=== PATIENT | female | born 1995 | race Two or more races ===

== ENCOUNTER 2024-10-05 12:40 | Emergency (ER) | payer MEDICAID, OTHER ==
[~2024-10-05] VITALS: Ht 160 cm; Wt 94.6 kg
--- NOTE | 2024-10-05 13:10 | ED.PDOC ---
History of Present Illness HPI Comments 28 y/o F presents for wellness check, today. Patient endorses on being at her [employer] appointment, earlier, with Dr. Yolanda Vincent and was informed that her expected 14x week is, actually, 11x weeks and her fetus showing a "faint heartbeat" then. Patient also endorses on having some mild spotting and cramping, intermittently, since yesterday, with another prior episode several weeks ago. She denies having any nausea, vomiting, urinary symptoms, fever, chills, or other associated symptoms or modifiers at this time. Patient admits to this being her fourth , currently ([id number]). 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 History 4 Para 3 AB 0 Family History Family History: Unknown Social History Smoker: Non-Smoker Alcohol: Denies ETOH Use Drugs: Denies Drug Use Lives In: Home Gastrointestinal: reports: abdominal pain Genitourinary: reports: abnormal vagina bleeding All Other Systems: Reviewed and Negative (negative unless otherwise stated above or in HPI) Physical Exam General Appearance: No Apparent Distress, Normal HEENT: Normal ENT Inspection, Pharynx Normal, TMs Normal Neck: Full Range of Motion, Non-Tender, Normal, Normal Inspection Respiratory: Chest Non-Tender, Lungs Clear, No Accessory Muscle Use, No Respiratory Distress, Normal Breath Sounds Cardiovascular: No Edema, No JVD, No Murmur, No Gallop, Normal Peripheral Pulses, Regular Rate/Rhythm Breast Exam: Deferred Gastrointestinal: No Organomegaly, Non Tender, No Pulsatile Mass, Normal Bowel Sounds, Soft Genitalia: Deferred Pelvic: Deferred Rectal: Deferred Extremities: No calf tenderness, Normal capillary refill, Normal inspection, No rmal range of motion, Non-tender, No pedal edema Musculoskeletal : Apperance: Normal Neurologic: Alert, trash hauler II-XII nml as Tested, No Motor Deficits, Normal Affect, Normal Mood, No Sensory Deficits Cerebellar Function: Normal Reflexes: Normal Skin: Dry, Normal Color, Warm Lymphatic: No Adenopathy Was a procedure done? Was a procedure done?: No Differential Dx Considerations may include: at-risk , threatened , menorrhagia, dysmenorrhea X-Ray, Labs, Meds, VS Vital Signs Date Time Temp Pulse Resp B/P (MAP) Pulse Ox O2 Delivery O2 Flow Rate FiO2 10/05/24 12:59 99.4 80 18 126/76 (93) 99 Lab Test 10/05/24 13:14 10/05/24 13:13 Range/Units Urine Color Light-yellow Yellow Urine Clarity Clear Clear Urine pH 5.5 5.0-9.0 Urine Specific [place] 1.009 1.001-1.035 Urine Protein Negative Negative Urine Ketones Negative Negative Urine Blood Negative Negative /uL Urine Nitrite Negative Negative Urine Bilirubin Negative Negative Urine Urobilinogen Normal Negative mg/dL Urine Leukocyte Esterase Negative Negative /uL Urine RBC 1 0 - 4 /hpf Urine WBC 1 0 - 5 /hpf Urine Squamous Epithelial Cells Few <5 /hpf Urine Bacteria None seen None Seen /hpf Urine Glucose Normal Normal mg/dL White Blood Count 9.4 4.4-10.8 10^3/uL Red Blood Count 4.40 4.0-5.20 10^6/uL Hemoglobin 14.5 12.2-16.2 g/dL Hematocrit 41.9 36.0-46.0 % Mean Corpuscular Volume 95.3 80.0-100.0 fL Mean Corpuscular Hemoglobin 32.8 H 28.0-32.0 pg Mean Corpuscular Hemoglobin Concent 34.5 32.0-36.0 g/dL Red Cell Distribution Width 13.0 11.8-14.3 % Platelet Count 288 140-450 10^3/uL Mean Platelet Volume 7.9 6.9-10.8 fL Neutrophils (%) (Auto) 70.8 37.0-80.0 % Lymphocytes (%) (Auto) 23.7 10.0-50.0 % Monocytes (%) (Auto) 4.9 0.0-12.0 % Eosinophils (%) (Auto) 0.4 0.0-7.0 % Basophils (%) (Auto) 0.2 0.0-2.0 % Neutrophils # (Auto) 6.7 1.6-8.6 10 ^3/uL Lymphocytes # (Auto) 2.2 0.4-5.4 10 ^3/uL Monocytes # (Auto) 0.5 0-1.3 10 ^3/uL Eosinophils # (Auto) 0 0-0.8 10 ^3/uL Basophils # (Auto) 0 0-0.2 10 ^3/uL Nucleated Red Blood Cells 0.0 % Sodium Level 138 136-145 mmol/L Potassium Level 4.2 3.5-5.1 mmol/L Chloride Level 108 H 98-107 mmol/L Carbon Dioxide Level 24 20-31 mmol/L Anion Gap 6 5-15 Blood Urea Nitrogen 10 9-23 mg/dL Creatinine 0.73 0.550-1.02 mg/dL Glomerular Filtration Rate Calc 114 >90 mL/min BUN/Creatinine Ratio 13.7 10.0-20.0 Serum Glucose 78 74-106 mg/dL Calcium Level 10.3 8.7-10.4 mg/dL Total Bilirubin 0.5 0.2-1.0 mg/dL Aspartate Amino Transferase (AST) 12 L 13-40 U/L Alanine Aminotransferase (ALT) < 9 7-40 U/L Alkaline Phosphatase 75 46-116 U/L Total Protein 6.7 5.7-8.2 g/dL Albumin 4.6 3.2-4.8 g/dL Beta HCG, Quantitative 3718.4 H 1.5-4.2 mIU/mL [place] [id number] Ph: [phone] DIAGNOSTIC IMAGING Diagnostic Imaging Report : [id number] Signed PATIENT: BETH BOUDREAUX ACCT: [id number] UNIT: [id number] : 1995 LOC: ER ROOM / BED: / AGE / SEX: 28 / F ADM STATUS: REG ER SERVICE 1303 ORDERING PHYSICIAN: HAFSA WADSWORTH MD PROCEDURE(s): OB4US - OB ULTRASOUND COMP LESS 14WKS REASON: ?miscarriage? ORDER NUMBER(s): [id number], ACCESSION NUMBER(s): [id number] Procedure: US OB ULTRASOUND COMP LESS 14WKS 10/05/2024 01:26 PM Indication: miscarriage Comparison: None Technique: Real-time grayscale and color images were obtained. FINDINGS: UTERUS: Anteverted, measuring 14.5 cm in length. An intrauterine gestational sac is seen with mean sac diameter of 5.8 cm corresponding to 11 weeks and 6 days c ontaining a pole measuring 4.2 cm in crown-rump length corresponding to 11 weeks and 1 day with no heart activity recorded. There is no yolk sac. A 4.3 x 0.5 x 2.9 cm subchorionic hemorrhage is noted. OVARIES: Nonvisualized. CUL-DE-SAC: No significant fluid noted. IMPRESSION: 1. Intrauterine with average ultrasound age of 11 weeks and 4 days with no heart tone concerning for demise. A moderate-sized subchorionic hemorrhage noted. ATED BY: YOLANDA ABDUL MD DICTATED DATE/TIME: 10/05/24 1353 SIGNED BY: YOLANDA ABDUL MD SIGNED DATE/TIME: 10/05/24 1353 CC: X-Ray, Labs, Meds, VS Comment This pleasant well-appearing 28-year-old at 14 weeks gestation was sent from her OBGYN. She had a ultrasound today which showed a fetus that was 11 weeks by size. She should be 14 weeks by gestational age. Additionally, there is unclear if they were able to find a heart tone. As such, she was sent here for further evaluation. Here, unfortunately, the patient was noted to have a demise as there was fetus at 11 weeks gestation without heart tones. Additionally, the patient is Rh negative and has had vaginal spotting for the last 2 days. She was provided with RhoGAM in the ED. she is asked to follow up with her OBGYN for serial beta-hCGs and possible D&C. The patient was discharged home. Time of 1ST Reevaluation: 13:20 Reevaluation 1ST: Unchanged Patient Education/Counseling: Diagnosis, Treatment Family Education/Counseling: No Family Present Departure 1 Departure Time of Disposition: 15:52 Impression: Primary Impression: demise before 20 weeks with retention of fetus Additional Impression: Vaginal spotting Disposition: 01 HOME / SELF CARE / HOMELESS Condition: Good Discharged With: Self Critical Care Note Critical Care Time?: No Stability Stability form required: No Heart Score Heart Score: Heart Score Response (Comments) Value History N/A 0 EKG N/A 0 Age N/A 0 Risk Factors N/A 0 Troponin N/A 0 Total 0 I personally scribed for HAFSA WADSWORTH MD ([email or web address]) on 10/05/24 at 13:10. Electronically submitted by Deonte Romo ([email or web address]). I personally scribed for HAFSA WADSWORTH MD ([email or web address]) on 10/05/24 at 14:26. Electronically submitted by Deonte Romo ([email or web address]). HAFSA WADSWORTH MD Oct 05, 2024 13:10
[2024-10-05 13:33] LABS: Basophils # (auto) 0 10 ^3/uL (0-0.2); Basophils % (auto) 0.2 % (0.0-2.0); Eosinophils # (auto) 0 10 ^3/uL (0-0.8); Eosinophils % (auto) 0.4 % (0.0-7.0); Hematocrit 41.9 % (36.0-46.0); Hemoglobin 14.5 g/dL (12.2-16.2); Lymphocytes # (auto) 2.2 10 ^3/uL (0.4-5.4); Lymphocytes % (auto) 23.7 % (10.0-50.0); Mean Corpuscular Hemoglobin 32.8 pg (28.0-32.0); Mean Corpuscular Hgb Conc. 34.5 g/dL (32.0-36.0); Mean Corpuscular Volume 95.3 fL (80.0-100.0); Monocytes # (auto) 0.5 10 ^3/uL (0-1.3); Monocytes % (auto) 4.9 % (0.0-12.0); Neutrophils # (auto) 6.7 10 ^3/uL (1.6-8.6); Neutrophils % (auto) 70.8 % (37.0-80.0); Platelet Count (auto) 288 10^3/uL (140-450); White Blood Cell 9.4 10^3/uL (4.4-10.8)
[2024-10-05 13:51] LABS: Alkaline Phosphatase 75 U/L (46-116); Anion Gap 6 (5-15); BUN/Creatinine Ratio 13.7 (10.0-20.0); Blood Urea Nitrogen 10 mg/dL (9-23); Calcium 10.3 mg/dL (8.7-10.4); Carbon Dioxide 24 mmol/L (20-31); Glucose 78 mg/dL (74-106); Potassium 4.2 mmol/L (3.5-5.1); Sodium 138 mmol/L (136-145)
[2024-10-05 13:52] LABS: Albumin 4.6 g/dL (3.2-4.8); Bilirubin, Total 0.5 mg/dL (0.2-1.0); Total Protein 6.7 g/dL (5.7-8.2)
--- NOTE | 2024-10-05 13:55 | DVH ---
Procedure: US OB ULTRASOUND COMP LESS 14WKS 10/05/2024 01:26 PM Indication: miscarriage Comparison: None Technique: Real-time grayscale and color images were obtained. FINDINGS: UTERUS: Anteverted, measuring 14.5 cm in length. An intrauterine gestational sac is seen with mean sa c diameter of 5.8 cm corresponding to 11 weeks and 6 days containing a pole measuring 4.2 cm in crown-rump length corresponding to 11 weeks and 1 day with no heart activity recorded. There is no yolk sac. A 4.3 x 0.5 x 2.9 cm subchorionic hemorrhage is noted. OVARIES: Nonvisualized. CUL-DE-SAC: No significant fluid noted. IMPRESSION: 1. Intrauterine with average ultrasound age of 11 weeks and 4 days with no heart tone concerning for demise. A moderate-sized subchorionic hemorrhage noted.
[2024-10-05 14:11] LABS: Aspartate Aminotransferase 12 U/L (13-40); Chloride 108 mmol/L (98-107)
[2024-10-05 14:12] LABS: Alanine Aminotransferase < 9 U/L (7-40)
[2024-10-05 14:14] LABS: Urine Bacteria None Seen /hpf (None Seen)
[2024-10-05 14:25] LABS: Urine Blood Negative /uL (Negative); Urine Clarity Clear (Clear); Urine Color Light-Yellow (Yellow); Urine Protein, UAD Negative (Negative); Urine Specific Gravity 1.009 (1.001-1.035); Urine Squamous Epithelial Cell FEW /hpf (<5); Urine Urobilinogen Normal (Negative); Urine WBC 1 /hpf (0 - 5); Urine pH 5.5 (5.0-9.0)
[2024-10-05] MEDS: RHO (D) IMMUNE GLOBULIN 300 MCG INJ IM ONE ×2 (15:30→19:09)
[2024-10-05 17:47] VITALS: BP 114/76; TEMP 97.9
[2024-10-05 18:00] VITALS: PULSE 83; RESP 16; O2SAT 100
== END 2024-10-05 19:14 | disposition home or self-care (01) ==
LOC: ER 12:40
DX: O20.9 Hemorrhage in early pregnancy, unspecified (principal); Z3A.11 11 weeks gestation of pregnancy
CPT/HCPCS: 36415; 76801; 80053; 81001; 84702; 85025; 86901; 90384; 96372

== ENCOUNTER → 2024-10-08 | Outpatient (CLI) | payer MEDICAID ==
[2024-10-09 22:06] LABS: Chlamydia Trachomatis, NAA Negative (Negative); Neisseria gonorrhoeae, NAA Negative (Negative)
== END | disposition home or self-care (01) ==
LOC: LAB 15:49
PROVIDERS: ATTEND Obstetrics & Gynecology
DX: O03.4 Incomplete spontaneous abortion without complication (principal)
CPT/HCPCS: 36415; 84702